=== PATIENT | male | born 2000 | race Two or more races ===

== ENCOUNTER 2018-03-03 02:51 | Emergency (ER) | payer OTHER | END 2018-03-03 03:45 | disposition home or self-care (01) | LOC: ER 02:51 | DX: S50.01XA Contusion of right elbow, initial encounter (principal); W18.39XA Other fall on same level, initial encounter; Y93.66 Activity, soccer; Y99.8 Other external cause status; Y92.89 Other specified places as the place of occurrence of the external cause | CPT/HCPCS: 73080; 99284 ==